=== PATIENT | male | born 1965 | race African-American/Black ===

== ENCOUNTER 2023-05-28 20:45 | Emergency (ER) | payer MEDICARE ==
[2023-05-28] MEDS ORDERED: HYDROcodone/Acetaminophen 5/325 mg Tablet ONE (21:42)
== END 2023-05-28 21:55 | disposition home or self-care (01) ==
LOC: BURERS 20:45
DX: S40.022A Contusion of left upper arm, initial encounter (principal); I10 Essential (primary) hypertension; W10.9XXA Fall (on) (from) unspecified stairs and steps, initial encounter; Y93.01 Activity, walking, marching and hiking